=== PATIENT | male | born 1945 | race Caucasian/White ===

== ENCOUNTER 2017-05-29 08:06 | Inpatient (IN) | payer OTHER ==
[~2017-05-29] VITALS: Ht 177.8 cm; Wt 54.2 kg
--- NOTE | ~2017-05-29 | CT23 ---
[facility] A Service of [facility] RADIOLOGY TEXT RESULTS PATIENT: CAR HENDRICKSON LOCATION: [facility] 316-01 : [birth year] UNIT #: [id number] AGE: [address]: Bina Nava MD SEX: M ORDER DR: [id number] [facility] [address] [facility]. [place], [place] [address] [id number] I MR#: [id number] Acc #: [id number] NAME: CAR HENDRICKSON : 1945 SEX: M STUDY DATE/TIME: 05/29/2017 13:30 UNIT: [address] ROOM: [facility] STUDY DESCRIPTION: CT Angio Neck Attending Physician: Bina Nava M.D. Ordering Physician: Tucker Judd M.D. Primary Care Physician: vA Valencia M.D. MEDICAL IMAGING REPORT This report is preliminary unless electronic signature is present EXAM CT angiogram of the neck with contrast dated 05/29/2017 HISTORY Slurred speech, unsteady gait since 05/27/2017. FINDINGS Please see CT angiogram of the head for results. Dictated by... Gilles Piedra M.D. THIS IS AN ELECTRONICALLY VERIFIED REPORT Gilles Piedra M.D. at 05/30/2017 11:42 AM CPR/olive TD: 05/30/2017 08:07 JOB #: [id number] MEDICAL IMAGING REPORT Page 1 of 1 COPY
--- NOTE | ~2017-05-29 | CO ---
Unit #: [id number] #: [id number] Patient: CAR HENDRICKSON [id number] [facility] [address] [facility]. [place], [place] [address] [id number] I MR#: [id number] NAME: CAR HENDRICKSON. ROOM: 316 Age: 72 Sex: M Admission Date: 05/29/2017 : 1945 Attending Physician: Bina Nava M.D. Primary Care Physician: Av Valencia M.D. Consultation Date: 05/29/2017 CONSULTATION REPORT PRIMARY CARE PHYSICIAN Av Valencia M.D. REASON FOR CONSULTATION Balance problem and speech problems since Monday. PATIENT IDENTIFICATION This is a 72-year-old right-handed white male, who is evaluated for room ER T5 at [facility]. SOURCE OF INFORMATION The patient and evaluation and progress. PROBLEM LIST 1. History of COPD. 2. Right hip replacement. 3. Hernia repair. HISTORY OF PRESENT ILLNESS This is a very pleasant 72-year-old gentleman, who actually presented to the emergency room around 0806 hours this morning. He says that sometimes in the afternoon on Monday, he had sudden onset of dizziness and imbalance. He said he was to one side mostly to the right side. He also has noted that his speech was deferred, but somehow he just stayed home and came this morning. He does not take any aspirin. His exam is not very impressive. Head CT showed some atrophy and old right basal ganglia infarct, but nothing acute otherwise. His MRI and further testing is pending. His vital signs were stable. He does have significant hypertension when he came in. He did have correct that, his blood pressure 189/115. This gentleman has been here in the past for asthma and GERD, but nothing major. He also was on B12 pills in the past and is still on Spiriva and ProAir HFA. No headaches. No migraines. No seizure. No tobacco, alcohol, or drug use. No falls or injuries. No insect bite. No recent weight changes. His vital signs have improved, some, but still his systolic blood pressure was as high as . He is afebrile. Unit #: [id number] #: [id number] Patient: CAR HENDRICKSON No change in medication. PAST MEDICAL HISTORY As discussed above. PAST SURGICAL HISTORY As discussed above. ALLERGIES None. HOME MEDICATIONS HFA ProAir, Spiriva. FAMILY HISTORY Lymphoma. SOCIAL HISTORY He lives by himself. There is no tobacco, alcohol, or drug use. He quit smoking about 9 years ago. REVIEW OF SYSTEMS GENERAL: The patient denies any weight issues, fever, chills, rigor, or sweats. HEENT: No headaches. No double vision, earache, runny nose, or sore throat. CARDIOVASCULAR: No chest pain, clubbing, cyanosis, orthopnea, or palpitation. PULMONARY: No shortness of air, cough, or expectoration. GASTROINTESTINAL: No nausea, vomiting, diarrhea, or constipation. GENITOURINARY: No genitourinary symptom. EXTREMITIES: No extremity problem otherwise. BACK: No back problem. PSYCHIATRIC: No psychotic issue. NEUROLOGIC: No neurologic issue. No other hematologic, dermatologic, or endocrine issues known to me. PHYSICAL EXAMINATION VITAL SIGNS: Temperature 98.2, pulse is 92, respirations 17 to 20, blood pressure is 151 to 189 systolic and 91 to 115 diastolic, O2 saturations were 100%, weight is 178 pounds, BMI was 25, though I want them to check it because he does not look that big. NEUROLOGIC: The patient is awake. He is alert. He is fully oriented. He can name and he can follow commands. No right or left confusion. No finger agnosia. Cranial nerve examination demonstrates full antunez of vision to confrontation. Eye movements are conjugate. I did not see any ptosis. I did not see any nystagmus. Extraocular movements are intact. Sensation on the face and scalp are normal. Strength of muscles of facial expression normal. Hearing seemed to be intact bilaterally. Tongue seemed to be deviating little bit towards the right side and uvula may be deviating a little bit towards the left side. Head turning was spontaneous. Motor examination; he has normal bulk, tone. Strength was essentially 5/5. Sensory examination intact for soft touch and pain sensation. No Unit #: [id number] #: [id number] Patient: CAR HENDRICKSON extinction was seen. Romberg was not evaluated. Gait examination was deferred. Coordination was normal for lzhofy-az-thxi-to-finger and dlz-hh-lkrrgm. He could not do kryi-ec-vsdb on the right side. Left side was okay. I could not get any reflexes. Toes are mute. DIAGNOSTIC STUDIES LABORATORY RESULTS: Reviewed personally. IMAGING STUDIES: Reviewed personally. IMPRESSION This is a very interesting 72-year-old gentleman with dizziness and dysarthria and ataxia. I am concerned that he may have a small vessel may be even a mid brain or brainstem type infarct, though I am not seeing any other signs or symptoms. I will check his MRI. I will check his CTA and other labs. We will do stroke workup. He is not acute tPA or intervention candidate. If MRI is okay, he can be worked up as outpatient aspirin, Lipitor, stroke education, I checked his B12 and folate also. Call if any other questions, issues, or concerns. Stroke education was given and I told him he should of come as soon as possible because of the short window where we can help him, he acknowledges. Call if any other issues. Follow up with Neurology as outpatient for regardless of MRI. Dictated by... Naima Silva/wesley TD: 05/29/2017 13:26 JOB #: [id number] CONSULTATION REPORT Page 1 of 1 X Tucker Judd MD X CONSULTATION REPORT
--- NOTE | ~2017-05-29 | CR72 ---
[facility] A Service of [facility] RADIOLOGY TEXT RESULTS PATIENT: CAR HENDRICKSON LOCATION: [facility] 316-01 : 47 UNIT #: [id number] AGE: [address]: Bina Nava MD SEX: M ORDER DR: [id number] [facility] [address]. [place], [place] [address] [id number] I MR#: [id number] Acc #: [id number] NAME: CAR HENDRICKSON : 1945 SEX: M STUDY DATE/TIME: 05/29/2017 8:49 UNIT: CEDOF ROOM: 45763 STUDY DESCRIPTION: CR Chest Single View Portable Attending Physician: Jose A Perez M.D. Ordering Physician: Mayank Shaw M.D. Primary Care Physician: Av Valencia M.D. MEDICAL IMAGING REPORT This report is preliminary unless electronic signature is present EXAM Portable chest x-ray, 05/29/2017. HISTORY Shortness of air. 2 days duration. Off balance. Problems with speech. Emphysema. Former smoker. TECHNIQUE AP radiograph of the chest presented. COMPARISON 10/20/2013 FINDINGS Stable mild thoracic scoliosis. No acute-appearing bony abnormality. Heart and mediastinum are normal in size and contour. The lungs are somewhat hyperinflated. No change and consistent with given diagnosis of underlying emphysema. No indication of acute infectious or inflammatory disease, pleural effusion or pneumothorax. No suspicious nodule. Calcified granuloma right upper lung zone is stable. Dictated by... David Middleton M.D. THIS IS AN ELECTRONICALLY VERIFIED REPORT David Middleton M.D. at 05/31/2017 6:13 PM ALIYA/matheus TD: 05/29/2017 14:27 JOB #: [id number] [facility] A Service of [facility] & [facility] RADIOLOGY TEXT RESULTS PATIENT: CAR HENDRICKSON LOCATION: [facility] 316-01 : 47 UNIT #: [id number] AGE: [address]: Bina Nava MD SEX: M ORDER DR: MEDICAL IMAGING REPORT Page 1 of 1 COPY
--- NOTE | ~2017-05-29 | HP ---
Unit #: [id number] #: [id number] Patient: CAR HENDRICKSON [id number] [address] [address] [id number] I MR#: [id number] NAME: CAR HENDRICKSON ROOM: 22044 Age: 72 Sex: M Admission Date: 05/29/2017 : 1945 Attending Physician: Giovanny Perez M.D. Primary Care Physician: Av Valencia M.D. HISTORY AND PHYSICAL CHIEF COMPLAINT Balance/speech problems. HISTORY OF PRESENT ILLNESS The patient is a 72-year-old male with a history of COPD/emphysema, brought to the emergency room complaining of balance/speech problems since Monday. The patient stated that patient has been gradually having problems with walking and with falls. The patient also complains of trouble climbing stairs and lots of saliva causing trouble with speech. The patient stopped smoking many years ago and had smoked for a while. The patient continues to drink three beers every night, and the last beer was last night. The patient denies any headache and denies any chest pain, nausea, or vomiting. The patient is being admitted for the above reasons. PAST MEDICAL HISTORY History of COPD/emphysema. PAST SURGICAL HISTORY 1. Right hip replacement. 2. Hernia repair. HOME MEDICATIONS 1. Symbicort. 2. Albuterol. ALLERGIES No known drug allergies. FAMILY HISTORY Reviewed and none. SOCIAL HISTORY Quit smoking many years ago and smoked one pack per week. Continues to drink alcohol, three beers every night. No illicit drug abuse. REVIEW OF SYSTEMS Positive for speech problems and ataxia. Denies any headache, denies any nausea or vomiting, denies any chest pain, and denies any shortness of breath. All other systems have been reviewed and none. PHYSICAL EXAMINATION GENERAL: Patient is lying in bed not in acute distress, seen in the CT scan department. Patient has had an MRI and CTA of the brain. Unit #: [id number] #: [id number] Patient: CAR HENDRICKSON VITAL SIGNS: Temperature 98.2, pulse 106, respiratory rate 20, blood pressure 199/115, and saturating 100% on room air. HEENT: Head atraumatic, normocephalic. Pupils equal, round, and reactive to light and accommodation. NECK: Supple. LUNGS: Decreased air entry at the bases. HEART: Regular rate and rhythm. ABDOMEN: Soft. Positive bowel sounds. EXTREMITIES: No cyanosis, no clubbing. NEUROLOGIC: Alert, awake, and oriented. Positive for dysarthria and positive for decreased motor strength in the right upper and lower extremities. No sensory neurologic findings. PSYCHIATRIC: Mood and affect are appropriate. DIAGNOSTIC STUDIES LABORATORY: WBC 7.7, hemoglobin 16.8, hematocrit 48.2, and platelets 235,000. Troponin less than 0.05. INR is 1. Sodium 134, potassium 3.9, chloride 100, bicarb 26, glucose 94, BUN 10, creatinine 0.6, AST 17, ALT 13, and alkaline phosphatase 52. Cholesterol is 207, triglycerides 162, LDL 108, and HDL 67. C-reactive protein is less than 0.05. Vitamin B12 is 152 and folate is 15.9. IMAGING: CT of the head shows no acute intracranial findings, chronic lacunar infarcts, and microvascular disease. CARDIOLOGY: EKG shows normal sinus rhythm, (1) voltage criteria for LVH, and nonspecific ST-T abnormalities. ASSESSMENT 1. Transient ischemic attack with ataxia versus slurred speech. 2. Chronic obstructive pulmonary disease. 3. Alcohol abuse. PLAN Admit the patient to observation with telemetry. Patient has been seen by Neurology who recommended an MRI of the brain. Continue (2) for the withdrawal symptoms, continue with OT/PT, continue with Ativan 1 mg IV for MRI, replace the vitamin B12, and continue the aspirin and statins. Further recommendations will follow as more lab results are available. Dictated by Naima Barry TD: 05/29/2017 14:16 JOB #: [id number] HISTORY AND PHYSICAL Page 1 of 1 X GIOVANNY PEREZ MD X HISTORY AND PHYSICAL
--- NOTE | ~2017-05-29 | OR ---
Unit #: [id number] #: [id number] Patient: CAR HENDRICKSON [id number] [address] [place], [place] [address] [id number] Faiza MR#: [id number] NAME: CAR HENDRICKSON. ROOM: [facility] Date of Procedure: 05/31/2017 Admission Date: 05/29/2017 Surgeon: Heron Palomares M.D. : 1945 Attending Physician: Bina Nava M.D. Primary Care Physician: Av Valencia M.D. OPERATIVE REPORT PROCEDURE PERFORMED Esophagogastroduodenoscopy with PEG tube placement. INDICATIONS FOR PROCEDURE A 72-year-old gentleman, presented with acute stroke, now with severe oropharyngeal dysphagia. Speech evaluation was recommended. No oral intake and a PEG tube placement. MEDICATIONS Monitored anesthesia. POSTOPERATIVE FINDINGS 1. Esophageal ring, acquired, nonobstructing. 2. Small hiatal hernia. 3. Normal stomach. 4. Normal duodenum and distal duodenum. 5. Successful placement of G-tube and gastric body by a push method. PLAN See inpatient orders for details. DESCRIPTION OF PROCEDURE The patient was explained of the procedure, risks, and benefits along with risks and benefits of anesthesia. He was brought to the endoscopy room. Propofol anesthesia was given. Bite block was placed. The scope was passed down the mouth into the esophagus, stomach, duodenum, and distal duodenum. Findings as described. Identified a spot for G-tube placement by indentation and transillumination. I then confirmed with of the skin was draped and local anesthetic was given. A small incision was made. Trocar and cannula were then passed through this into the stomach. A guidewire was then passed through this trocar and pulled out of patient's mouth using the scope and the snare from inside. A push method tube was then placed over the wire and pulled out of anterior abdominal wall where it was secured with an external bumper. The scope was reintroduced in the stomach. Inner bumper was nicely in place. Gently, I pulled the scope out. He tolerated it well. No immediate complications seen. Dictated by... Heron Palomares M.D. Unit #: [id number] #: [id number] Patient: CAR HENDRICKSON BUTCH/wesley TD: 06/01/2017 01:29 JOB #: [id number] OPERATIVE REPORT Page 1 of 1 X Heron Palomares MD PROCEDURE OPERATIVE NOTE
--- NOTE | ~2017-05-29 | CT57 ---
[facility] A Service of [facility] RADIOLOGY TEXT RESULTS PATIENT: CAR HENDRICKSON LOCATION: [facility] 316-01 : [birth year] UNIT #: [id number] AGE: [address]: Bina Nava MD SEX: M ORDER DR: [id number] [facility] [address] [facility]. [place], [place] [address] [id number] I MR#: [id number] Acc #: [id number] NAME: CAR HENDRICKSON : 1945 SEX: M STUDY DATE/TIME: 05/30/2017 18:43 UNIT: [address] ROOM: [facility] STUDY DESCRIPTION: CT Chest Wo Cont Attending Physician: Bina Nava M.D. Ordering Physician: Bina Nava M.D. Primary Care Physician: Av Valencia M.D. MEDICAL IMAGING REPORT This report is preliminary unless electronic signature is present EXAM Chest CT without contrast. HISTORY Chest discomfort, onset today with chronic weight loss. TECHNIQUE Axial images were obtained without contrast and evaluated at lung and mediastinal windows. This CT exam was performed with one or more of the following radiation dose reduction techniques: automatic exposure control, adjustment of mA and/or kV according to patient size, and iterative reconstruction. FINDINGS Chest images at mediastinal window show no enlarged mediastinal or hilar lymph nodes. Atherosclerotic changes are seen in the aorta. Upper abdominal structures are remarkable for bilateral renal cysts. There is no evidence of pleural or pericardial fluid. Lung window imaging shows both lungs to be clear with no suspicious masses or infiltrates. IMPRESSION Negative chest CT. No suspicious masses are seen. Dictated by... Mayank Hand M.D. THIS IS AN ELECTRONICALLY VERIFIED REPORT Mayank Hand M.D. at 06/01/2017 7:08 AM NY/sadie TD: 05/31/2017 09:14 [facility] A Service of [facility] RADIOLOGY TEXT RESULTS PATIENT: CAR HENDRICKSON LOCATION: [facility] 316-01 : [birth year] UNIT #: [id number] AGE: [address]: Bina Nava MD SEX: M ORDER DR: JOB #: [id number] MEDICAL IMAGING REPORT Page 1 of 1 COPY
--- NOTE | ~2017-05-29 | OR ---
Unit #: [id number] #: [id number] Patient: CAR HENDRICKSON [id number] [address] [place], [place] [address] [id number] Faiza MR#: [id number] NAME: CAR HENDRICKSON. ROOM: [facility] Date of Procedure: 05/31/2017 Admission Date: 05/29/2017 Surgeon: Heron Palomares M.D. : 1945 Attending Physician: Bina Nava M.D. Primary Care Physician: Av Valencia M.D. PROCEDURE OPERATIVE NOTE PROCEDURE EGD with PEG tube placement. INDICATION 72-year-old gentleman with acute stroke, now with severe oropharyngeal dysphagia. Speech evaluation recommended. No oral intake and a PEG tube placement. MEDICATION Monitored anesthesia. POSTOP FINDINGS 1. Esophageal ring acquired, nonobstructing. 2. Small hiatal hernia. 3. Normal stomach. 4. Normal duodenum. 5. Status post placement of G-tube in gastric body by push method. PLAN See inpatient orders for details. DESCRIPTION OF PROCEDURE The patient was explained the procedure, risks, and benefits along with risks and benefits of anesthesia. He was brought to the endoscopy room. Propofol anesthesia was given. Bite block was placed. The scope was passed down the mouth into the esophagus, stomach, duodenum, and distal duodenum. Findings as described. Identified a spot for G-tube placement by indentation and transillumination. I then confirmed with safe track method. Part of the skin was draped. Local anesthetic was given. Small incision was made. Trocar and cannula was then passed through this into the stomach. A guidewire was then passed through this trocar and pulled out of patient's mouth using a scope and a snare from inside. A push method tube was then placed over the wire and pulled out of anterior abdominal wall where it was secured with an external bumper. Scope was reintroduced in the stomach and the bumper was nicely in place. Gently, I pulled the scope out. He tolerated it well. No immediate complications seen. Dictated by... Unit #: [id number] #: [id number] Patient: CAR HENDRICKSON Naima Lopez/silvia TD: 06/01/2017 10:08 JOB #: [id number] PROCEDURE OPERATIVE NOTE Page 1 of 1 X Heron Palomares MD PROCEDURE OPERATIVE NOTE
--- NOTE | ~2017-05-29 | CR4 ---
[facility] A Service of [facility] RADIOLOGY TEXT RESULTS PATIENT: CAR HENDRICKSON LOCATION: [facility] 316 : 47 UNIT #: [id number] AGE: [address]: Bina Nava MD SEX: M ORDER DR: [id number] [place] [id number] [facility]. [place], [place] [address] [id number] I MR#: [id number] Acc #: [id number] NAME: CAR HENDRICKSON. : 1945 SEX: M STUDY DATE/TIME: 05/31/2017 15:21 UNIT: [address] ROOM: [address] [place] [address] DESCRIPTION: CR Abdomen Flat Upright or Dec Attending Physician: Bina Nava M.D. Ordering Physician: Heron Palomares M.D. Primary Care Physician: Av Valencia M.D. MEDICAL IMAGING REPORT This report is preliminary unless electronic signature is present EXAM Flat and upright abdomen. INDICATIONS Abdominal pain for 2 hours today; recent PEG placement. COMPARISON No comparisons. TECHNIQUE 20 mL of gastrograph was injected into the PEG tube. FINDINGS This shows contrast within the stomach. There is also residual contrast in the colon, presumably from a different study. No free air. No evidence for bowel obstruction. IMPRESSION Contrast injected into the PEG tube shows that there is contrast within the stomach. There is no free air. There is some contrast within the colon, presumably from previous contrast study. Dictated by... Maurizio Sharpe M.D. THIS IS AN ELECTRONICALLY VERIFIED REPORT Maurizio Sharpe M.D. at 06/02/2017 7:56 AM SHILA/matheus TD: 05/31/2017 18:52 JOB #: [id number] [facility] A Service [facility] RADIOLOGY TEXT RESULTS PATIENT: CAR HENDRICKSON LOCATION: [facility] 316- : 47 UNIT #: [id number] AGE: [address]: Bina Nava MD SEX: M ORDER DR: MEDICAL IMAGING REPORT Page 1 of 1 COPY
--- NOTE | ~2017-05-29 | MR18 ---
[facility] A Service of [facility] & [facility] RADIOLOGY TEXT RESULTS PATIENT: CAR HENDRICKSON LOCATION: [facility] 316-01 : [birth year] UNIT #: [id number] AGE: [address]: Bina Nava MD SEX: M ORDER DR: [id number] [facility] [address] [facility]. [place], [place] [address] [id number] I MR#: [id number] Acc #: [id number] NAME: CAR HENDRICKSON : 1945 SEX: M STUDY DATE/TIME: 05/29/2017 12:35 UNIT: [address] ROOM: [facility] STUDY DESCRIPTION: MR Brain Wo Contrast Attending Physician: Jose A Perez M.D. Ordering Physician: Tucker Judd M.D. Primary Care Physician: Av Valencia M.D. MRI CENTER REPORT This report is preliminary unless electronic signature is present. EXAM MRI of the brain without contrast dated 05/29/2017. COMPARISON CT head without contrast dated 05/29/2017. HISTORY Imbalance, speech difficulty since 05/27/2017. TECHNIQUE Multisequence multiplanar imaging of the brain was obtained without contrast. FINDINGS There is restricted diffusion over lesion measuring 9 mm in the left frontal weaver radiata extending into the adjacent left posterior limb of the internal capsule and basal ganglia. No associated hemorrhage. There are a few other hyperintense T2 lesions scattered in the brain involving the periventricular white matter, few in the subcortical white matter, and the right frontal weaver radiata extending to the right basal ganglia, left thalamus and aubrey. They are chronic-appearing. No complete occlusion of the vessels of the [place] is seen in these thicker slices. The right vertebral artery is of very small caliber. Thick slices through the sella with the pituitary gland, pineal region and upper cervical spine are unremarkable. IMPRESSION 1. 9 mm acute non-hemorrhagic lacunar infarct in the left frontal weaver radiata extending into the left basal ganglia. 2. Scattered hyperintense T2-signal lesions are noted in the brain involving the white matter, left thalamus, right basal ganglia and STS. [facility] A Service of [facility] & [facility] RADIOLOGY TEXT RESULTS PATIENT: CAR HENDRICKSON LOCATION: [facility] 316-01 : [birth year] UNIT #: [id number] AGE: [address]: Bina Nava MD SEX: M ORDER DR: aubrey. They are likely related to chronic microvascular ischemic change and old lacunar infarcts based on age and statistics. Nonspecific. Attempts are made to contact Dr. Judd at 01:40 p.m. on 05/29/2017. Findings were discussed with him within the next 10 minutes. Dictated by... Gilles Piedra M.D. THIS IS AN ELECTRONICALLY VERIFIED REPORT Gilles Piedra M.D. at 05/30/2017 11:41 AM CPR/pcl TD: 05/29/2017 23:12 JOB #: [id number] MRI CENTER REPORT Page 1 of 1 COPY
--- NOTE | ~2017-05-29 | A ---
[facility] Nutrition Therapy DATE: 05/30/17 Patient: CAR HENDRICKSON Physician: SHRADDHA Address: [address] [place] [address] Room/Bed: [address] [place] [address], Zip: [place] [address] Admit Date: 05/29/17 Date of : [birth year] Height: 5 10 Weight: 115 52.6 NUTRITIONAL ASSESSMENT: REASON: Low BMI, stroke protocol and consult for tube feeding recommendations 72 yo male admitted for TIA vs CVA PMH: COPD, right hip replacement, hernia repair, GERD Anthropometrics: Ht: 5'10" Adm wt: BMI: IBW: 75.4 kg Labs: Na+ 134 Cl- 96 Chol 207 Trig 162 Meds: D5% + NaCl, folvite, thiamine, MgS04, MVI, lipitor I/O & Bowel function: 120/400, No documented BM Skin Integrity: none noted Edema: none noted Estimated Nutrition Needs: 4606-6319 kcals (30-35 kcals/kg) 53-68 grams protein (1.0-1.3 grams/kg) Diet: NPO Assessment: Chart reviewed, events noted. 72 yo male admitted for stroke with balance and speech issues per MD note. SALES LEADER recommends that the pt remains NPO and to consider feeding tube at this time d/t dysphagia. Dysarthria also noted. Pt needing PEG per MD note. RD consulted to provide enteral nutrition recommendations. Of note, the pt is underweight with a BMI of 16.6. RD spoke with the pt at bedside. 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 explained to the pt that he currently weighs 116 lbs, which would indicated that he has lost ~4-[address] also explained the importance of adequate nutritional intake, and how enteral nutrition works via PEG. Pt voiced understanding, stating he is very hungry. Please note, this pt may be at risk for refeeding syndrome d/t low body weight and daily alcohol intake, likely malnutrition. RD will provide enteral nutrition recommendations below. Dx: 1) Inadequate oral intake RT dysphagia, stroke AEB SALES LEADER evaluation, NPO status, need for PEG and enteral nutrition. [facility] Therapy DATE: 05/30/17 Patient: CAR Amanda HENDRICKSON Physician: [email or web address] Address: [address] [place] [address] Room/Bed: [address] [place] [address], Zip: [place] [address] Admit Date: 05/29/17 Date of : [birth year] Height: 5 10 Weight: 115 52.6 2) Underweight RT lifestyle, PMH AEB BMI 16.6, 70% IBW, 4-9 lbs weight loss likely. Intervention: 1. SALES LEADER 2. PEG 3. Enteral nutrition Monitoring, Evaluation and Goals: 1. Enteral nutrition; initiate, provide >80% goal volume x 24 hrs once started 2. Improve labs; Na+, Chol, trig 3. GI; promote regular bowel function Recommendations: 1. Once PEG is placed and enteral nutrition ordered by MD, start Jevity 1.5 @ 20 mL/hr (if continuous EN desired). Increase by 10 mL q 8 hrs as tolerated to goal of 50 mL/hr to provide: 1800 kcals/ 77 grams protein/ 912 mL free H20 Start at low rate and increase gradually per RD recommendations, as this pt is at risk for refeeding syndrome as previously stated 2. Consider bolus enteral nutrition to provide a less expensive option for the pt. This will also allow the pt to ambulate more easily. If bolus enteral nutrition preferred, recommend to: - Bolus five cans (237 mL per can) Jevity 1.5 per day to provide: 1775 kcals/ 76 grams protein/ 900 mL free H20 3. Add 200 mL free H20 flushes fives times daily or per MD orders. 4. Continue SALES LEADER after discharge as appropriate to determine least restrictive diet tolerated by the pt. Pt is at moderate nutritional risk. RD will follow hospital course per protocol. Respectfully, NOE XIE RD, LD Food and Nutritional Services [facility] Nutrition Therapy DATE: 05/30/17 Patient: CAR Amanda HENDRICKSON Physician: [email or web address] Address: [address] [place] [address] Room/Bed: [address] [place] [address], Zip: [place] [address] Admit Date: 05/29/17 Date of : [birth year] Height: 5 10 Weight: 115 52.6 cc: client file
--- NOTE | ~2017-05-29 | EKG ---
PATIENT: CAR HENDRICKSON UNIT #: [id number] Ventricular Rate: 96 BPM Atrial Rate: 96 BPM P-R Interval: 128 ms QRS Duration: 92 ms Q-T Interval: 336 ms QTC Calculation(Bezet): 424 ms P [place]: 78 degrees Calculated R [place]: 49 degrees Calculated T [place]: 55 degrees Diagnosis Line: Normal sinus rhythm Diagnosis Line: Minimal voltage criteria for LVH, may be normal Diagnosis Line: variant Diagnosis Line: Normal ECG Diagnosis Line: When compared with ECG of 20-OCT-2013 18:28, Diagnosis Line: No significant change was found Diagnosis Line: Confirmed by MARCUS SMYTH MD ([id number]) on 05/29/2017 Diagnosis Line: 10:11:51 PM INTERPRETING MD: LIBRA HOWE
--- NOTE | ~2017-05-29 | DS ---
Unit #: [id number] #: [id number] Patient: CAR HENDRICKSON [id number] [address] [place], [place] [address] [id number] I MR#: [id number] NAME: CAR HENDRICKSON ROOM: [facility] Age: 72 Sex: M Admission Date: 05/29/2017 : 1945 Discharge Date: 06/02/2017 Attending Physician: Bina Nava M.D. Primary Care Physician: Av Valencia M.D. DISCHARGE SUMMARY REASON FOR ADMISSION Balance/speech problems. HISTORY OF PRESENT ILLNESS Patient is a very pleasant 72-year-old male, underlying history of COPD, ongoing tobacco abuse, who presented secondary to difficulty with ambulation, frequent falls. He also complained of increased saliva, difficulty with speech and/or swallowing. He stated that he continued to drink and consume alcohol on a fairly daily basis. He was seen initially and evaluated in the ER. Concern for underlying CVA was made. He was placed on stroke protocol and appropriate consultation was placed to Dr. Judd. Patient ultimately underwent an MRI brain without contrast which did reveal a 9 mm acute nonhemorrhagic lacunar infarct in the left frontal weaver radiata and in the left basal ganglia. There were also other scattered hyperintense lesions which were noted, likely secondary to chronic microvascular change and likely nonspecific. After evaluation from Dr. Judd, patient was placed on appropriate medical management including statin therapy as well as aspirin. Secondary to increased dyspnea, respiratory condition as well as the patient's complaints of weight loss, he ultimately underwent a CT chest noncontrast which did not show any acute process or any suspicious masses. This was conducted on 05/30/2017. As per routine stroke protocol, patient also underwent speech therapy consultation and after evaluation including video function swallow study, patient was deemed to be inappropriate to swallow and absolute dysphagia and/or n.p.o. status was recommended therefore this prompted consultation to Dr. Palomares of gastroenterology services. PEG tube placement was recommended. Vivienne underwent upper GI endoscopy as well as PEG tube placement on May 31, 2017. Afterwards his tube feeding was initiated to which he has tolerated well over the past 24 hours and at this point in time patient is clinically stable for discharge home. In approximately four weeks the patient was instructed to follow up with neurology services, Dr. Martin, as an outpatient. He was also instructed to follow up with speech therapy services as an outpatient as well. Reevaluation of speech and/or swallowing mechanism may be conducted at that point in time. If it is deemed appropriate he may begin taking p.o. and/or consideration may be given to discontinuing his PEG tube placement. All plans have been reviewed and discussed with patient in detail. Unit #: [id number] #: [id number] Patient: CAR HENDRICKSON It was strongly recommended to him that he quit drinking alcohol altogether as his chronic alcoholism may be overall detrimental to his health and he expressed understanding. FINAL DISCHARGE DIAGNOSES 1. Acute cerebrovascular accident. 2. Frequent falls. 3. Absolute dysphagia. 4. Moderate to severe protein/caloric malnutrition, likely secondary to underlying alcohol abuse. 5. Alcohol abuse/dependence. 6. Tobacco abuse. 7. Underlying chronic obstructive pulmonary disease. FINAL DISCHARGE MEDICATIONS 1. Proventil HFA two puffs q.4-6 h. p.r.n. 2. Spiriva one inhalation daily. 3. Lipitor 40 mg p.o. q.h.s. 4. Aspirin 81 mg p.o. daily. 5. Multivitamin daily. DISCHARGE CONDITION Stable. DISCHARGE DISPOSITION Home. DISCHARGE INSTRUCTIONS Home health to follow at time of discharge once tube feeding and/or nutrition and appropriate DME are set up. Dictated by... Bina Nava M.D. FAUSTINO/cathleen TD: 06/04/2017 16:22 JOB #: [id number] DISCHARGE SUMMARY Page 1 of 1 X Bina Nava MD X DISCHARGE SUMMARY
--- NOTE | ~2017-05-29 | CT71 ---
[facility] A Service of [facility] & [facility] RADIOLOGY TEXT RESULTS PATIENT: CAR HENDRICKSON LOCATION: A 316-01 : [birth year] UNIT #: [id number] AGE: [address]: Bina Nava MD SEX: M ORDER DR: [id number] [facility] [address] [place], [place] [address] [id number] I MR#: [id number] Acc #: [id number] NAME: CAR HENDRICKSON : 1945 SEX: M STUDY DATE/TIME: 05/29/2017 9:09 UNIT: CEDOF ROOM: [id number] STUDY DESCRIPTION: CT Head Wo Contrast Attending Physician: Jose A Perez M.D. Ordering Physician: Mayank Shaw M.D. Primary Care Physician: Av Valencia M.D. MEDICAL IMAGING REPORT This report is preliminary unless electronic signature is present EXAM CT head, 05/29/2017. HISTORY Off balance and speech difficulty since 05/27/2017. TECHNIQUE CT head performed skull base through vertex without intravenous contrast. This CT exam was performed with one or more of the following radiation dose reduction techniques: automatic exposure control, adjustment of mA and/or kV according to patient size, and iterative reconstruction. COMPARISON STUDIES No prior CTs of head for comparison. FINDINGS The brainstem is unremarkable. The cerebellum and cerebral hemispheres show overall preservation of [place] matter-white matter differentiation. There is no evidence of hemorrhage or acute cortical ischemia. There are periventricular and deep white matter tract probable sequelae of chronic microvascular ischemia. There is a chronic lacunar infarct in the right caudate nucleus body measuring approximately 6-7 mm in diameter. It does extend into the internal capsule. There are bilateral basal ganglia calcifications. There is no evidence of acute basal ganglia abnormality. The ventricles, cisterns, and sulci within normal limits of size and contour for a patient of this age. Extensive cavernous carotid and distal vertebral arterial calcification. No intra or extraaxial mass effect or abnormal intracranial fluid collection. The intraorbital soft tissues are unremarkable in visualized extent. The visualized paranasal sinuses and mastoid air cells are clear. STS. [facility] A Service of [facility] & [facility] RADIOLOGY TEXT RESULTS PATIENT: CAR HENDRICKSON LOCATION: [facility] 316- : [birth year] UNIT #: [id number] AGE: [address]: Bina Nava MD SEX: M ORDER DR: IMPRESSION 1. No acute abnormality seen in brain. If patient has ongoing neurologic symptoms, consider followup imaging. 2. Periventricular and deep white matter tract probable sequelae of chronic microvascular ischemic. 3. 6-7 mm chronic lacunar infarct right caudate nucleus body and internal capsule. 4. Extensive vascular calcification. Dictated by... David Middleton M.D. THIS IS AN ELECTRONICALLY VERIFIED REPORT David Middleton M.D. at 05/31/2017 6:14 PM [place] TD: 05/29/2017 15:01 JOB #: [id number] MEDICAL IMAGING REPORT Page 1 of 1 COPY
--- NOTE | ~2017-05-29 | CT17 ---
[facility] A Service of [facility] & [facility] RADIOLOGY TEXT RESULTS PATIENT: CAR HENDRICKSON LOCATION: [facility] 316-01 : [birth year] UNIT #: [id number] AGE: [address]: Bina Nava MD SEX: M ORDER DR: [id number] [facility] [address] [place], [place] [address] [id number] I MR#: [id number] Acc #: [id number] NAME: CAR HENDRICKSON : 1945 SEX: M STUDY DATE/TIME: 05/29/2017 13:30 UNIT: [address] ROOM: [facility] STUDY DESCRIPTION: CT Angio Head Attending Physician: Bina Nava M.D. Ordering Physician: Tucker Judd M.D. Primary Care Physician: Av Valencia M.D. MEDICAL IMAGING REPORT This report is preliminary unless electronic signature is present EXAM CT angiogram of the head and neck with contrast dated 05/29/2017 COMPARISON MRI brain without contrast dated 05/29/2017. HISTORY Slurred speech, unsteady gait since 05/27/2017. FINDINGS CT angiogram of the head and neck was obtained with IV contrast in the axial plane followed by reformats. Curved reformats of the major neck arteries were performed. Reformats of the [place] in three planes, 3-D tumbling MIP images of the [place] and surface rendered images of the [place] with bilateral MCA snapshots were obtained. This CT examination was performed with one or more of the following radiation dose reduction techniques: automatic exposure control, adjustment of mA and/or kV according to patient size, and iterative reconstruction. FINDINGS NECK: Three-vessel aortic arch is seen. Atherosclerotic plaques are noted in the aortic arch extending into the left subclavian artery. Bilateral common carotid arteries demonstrate atherosclerotic plaques in bilateral common carotid artery bifurcation extending into bilateral ECA and ICA. No hemodynamically significant stenosis is seen in bilateral ICA bulbs per NASCET criteria. Left vertebral artery is dominant. Right vertebral artery is of very small caliber and is seen throughout its cervical course. HEAD: Bilateral intracranial internal carotid arteries demonstrate mild atherosclerotic plaques in bilateral cavernous and supraclinoid ICA. Bilateral anterior and middle cerebral arteries are within normal limits. [facility] A Service of [facility] RADIOLOGY TEXT RESULTS PATIENT: CAR HENDRICKSON LOCATION: [facility] 316-01 : [birth year] UNIT #: [id number] AGE: [address]: Bina Nava MD SEX: M ORDER DR: Bilateral posterior communicating arteries are seen which cross fill bilateral P2 and distal portions of bilateral ELECTRONIC WARFARE SPECIALIST with very hypoplastic bilateral P1 segments. Basilar artery demonstrates decrease in caliber in the distal half after the takeoff of bilateral AICA. Bilateral P1 segments are hypoplastic. Tiny bilateral superior cerebellar arteries are seen. Left vertebral artery is dominant and predominantly feeds the basilar artery. The right vertebral artery is hypoplastic. Right PICA is within normal limits. Dural venous sinuses are patent without filling defects to suggest thrombosis. EXTRAVASCULAR SOFT TISSUES: Degenerative changes are noted in the cervical spine with varying degrees of canal stenosis and neural foraminal narrowing. No enhancing intracranial mass is seen. Patient has a known acute lacunar infarct in the left frontal weaver radiata, best seen in the MRI brain from the same day. IMPRESSION 1. No hemodynamically flow limiting significant stenosis in bilateral internal carotid artery bulbs per NASCET criteria. 2. The left middle cerebral artery does not demonstrate any significant abnormality. It is symmetrical when compared to the right. 3. The distal half of the basilar artery demonstrates decreased caliber when compared to the proximal half. The difference is seen after the takeoff of bilateral AICA from the basilar artery. It is probably a congenital appearance. No obvious vascular irregularity is noted to suggest atherosclerotic disease. 4. Persistent appearance of bilateral ELECTRONIC WARFARE SPECIALIST are incidentally noted. 5. Very hypoplastic cervical right vertebral artery which extends intracranially. 6. No aneurysm or AVM. Dictated by... Gilles Piedra M.D. THIS IS AN ELECTRONICALLY VERIFIED REPORT Gilles Piedra M.D. at 05/30/2017 11:42 AM CPR/olive TD: 05/30/2017 08:09 JOB #: [id number] MEDICAL IMAGING REPORT Page 1 of 1 COPY
[~2017-05-29 08:06] MED LIST: ALBUTEROL17 GM INH; LORTAB 7.5-5001 TAB PO; OMEPRAZOLE DR PO; PREDNISONE10 MG PO; PROAIR HFA8.5 GM IH; QVAR7.3 GM INH; SPIRIVA18 MCG INH; SYMBICORT INH; VITAMIN B12-FO1 EACH PO
[2017-05-29 08:43] LABS: BASOPHIL% 0.5 % (0-2.5); EOSINOPHIL% 0.1 % (0.0-7.0); HEMATOCRIT 48.2 % (38.0-50.0); HEMOGLOBIN 16.8 gm/dL (13.0-16.0); LYMPHOCYTE# 1.1 X10e3 (1.0-3.5); LYMPHOCYTE% 13.9 % (17.0-45.0); MEAN CELL VOLUME 94.4 FL (83-96); MEAN CORPUSCULAR HEMOGLOBIN 32.8 PG (28-34); MEAN CORPUSCULAR HGB CONC 34.8 g/dL (30-36); MEAN PLATELET VOLUME 6.8 FL (6.5-11.5); MONOCYTE# 0.5 X10e3 (0-1.0); MONOCYTE% 7.1 % (3.0-12.0); NEUTROPHIL# 6.1 X10e3 (1.5-7.1); NEUTROPHIL% 78.4 % (40-75); PLATELET COUNT 235 X10e3 (140-420); RED BLOOD COUNT 5.11 X10e (3.90-5.60); RED CELL DISTRIBUTION WIDTH 13.7 % (11.0-15.5); WHITE BLOOD COUNT 7.7 X10e3 (4.0-10.5)
[2017-05-29 08:46] LABS: DIFF IND NO
[2017-05-29 08:54] LABS: POC - CKMB 1.2 ng/mL (0.0-7.9); POC - TROPONIN <0.05 ng/mL (<=0.05)
[2017-05-29 08:56] LABS: PARTIAL THROMBOPLASTIN TIME 25.9 SECONDS (23.5-31.3); PROTHROMBIN TIME (PATIENT) 10.7 SECONDS (10.0-11.7)
[2017-05-29 09:09] LABS: ALBUMIN SERUM 4.4 g/dL (3.5-5.0); BILIRUBIN, DIRECT 0.1 mg/dL (0.0-0.2); BILIRUBIN,INDIRECT 0.9 mg/dL (0.0-0.9); BUN/CREATININE RATIO 16.66; CALCIUM SERUM 9.2 mg/dL (8.4-10.2); CREATININE SERUM 0.6 mg/dL (0.6-1.4); GLOM FILT RATE Estimated 101.9 mL/min (>60); POTASSIUM 3.9 mmol/L (3.5-5.1); PROTEIN TOTAL SERUM 7.5 g/dL (6.0-8.3)
[2017-05-29 12:42] LABS: BUN/CREATININE RATIO 16.66; CREATININE SERUM 0.6 mg/dL (0.6-1.4); GLOM FILT RATE Estimated 101.9 mL/min (>60); POTASSIUM 3.9 mmol/L (3.5-5.1)
[2017-05-29 12:43] LABS: ALBUMIN SERUM 4.4 g/dL (3.5-5.0); CALCIUM SERUM 9.2 mg/dL (8.4-10.2); PROTEIN TOTAL SERUM 7.5 g/dL (6.0-8.3)
[2017-05-29 13:02] LABS: FOLATE (FOLIC ACID) 15.9 ng/mL (>5.8)
[2017-05-29] MEDS ORDERED: ALBUTEROL17 GM INH (15:50)
[2017-05-29] MEDS ORDERED: LIPITOR40 MG PO (15:51)
[2017-05-29] MEDS ORDERED: SPIRIVA18 MCG INH (15:51)
[2017-05-30 04:55] LABS: HEMATOCRIT 45.1 % (38.0-50.0); HEMOGLOBIN 15.7 gm/dL (13.0-16.0); MEAN CELL VOLUME 95.1 FL (83-96); MEAN CORPUSCULAR HEMOGLOBIN 33.1 PG (28-34); MEAN CORPUSCULAR HGB CONC 34.8 g/dL (30-36); MEAN PLATELET VOLUME 6.8 FL (6.5-11.5); RED BLOOD COUNT 4.75 X10e (3.90-5.60); RED CELL DISTRIBUTION WIDTH 13.2 % (11.0-15.5); WHITE BLOOD COUNT 6.9 X10e3 (4.0-10.5)
[2017-05-30 06:47] LABS: BUN/CREATININE RATIO 16.66; CREATININE SERUM 0.6 mg/dL (0.6-1.4); GLOM FILT RATE Estimated 101.9 mL/min (>60); POTASSIUM 4.1 mmol/L (3.5-5.1)
[2017-05-31 06:03] LABS: HEMATOCRIT 43.4 % (38.0-50.0); HEMOGLOBIN 14.9 gm/dL (13.0-16.0); MEAN CELL VOLUME 95.1 FL (83-96); MEAN CORPUSCULAR HEMOGLOBIN 32.6 PG (28-34); MEAN CORPUSCULAR HGB CONC 34.3 g/dL (30-36); RED BLOOD COUNT 4.56 X10e (3.90-5.60); RED CELL DISTRIBUTION WIDTH 13.3 % (11.0-15.5); WHITE BLOOD COUNT 6.5 X10e3 (4.0-10.5)
[2017-05-31 06:57] LABS: ALBUMIN SERUM 3.5 g/dL (3.5-5.0); BILIRUBIN,TOTAL 0.9 mg/dL (0.2-2.0); CALCIUM SERUM 8.5 mg/dL (8.4-10.2); CREATININE SERUM 0.6 mg/dL (0.6-1.4); GLOM FILT RATE Estimated 101.9 mL/min (>60); MAGNESIUM 2.2 mg/dL (1.6-3.0); POTASSIUM 4.2 mmol/L (3.5-5.1); PROTEIN TOTAL SERUM 5.7 g/dL (6.0-8.3)
[2017-06-01 05:15] LABS: HEMATOCRIT 39.1 % (38.0-50.0); HEMOGLOBIN 13.8 gm/dL (13.0-16.0); MEAN CELL VOLUME 94.1 FL (83-96); MEAN CORPUSCULAR HEMOGLOBIN 33.1 PG (28-34); MEAN CORPUSCULAR HGB CONC 35.2 g/dL (30-36); MEAN PLATELET VOLUME 6.9 FL (6.5-11.5); RED BLOOD COUNT 4.16 X10e (3.90-5.60); RED CELL DISTRIBUTION WIDTH 13.3 % (11.0-15.5)
[2017-06-01 05:23] LABS: WHITE BLOOD COUNT 10.8 X10e3 (4.0-10.5)
[2017-06-01 07:15] LABS: ALBUMIN SERUM 3.3 g/dL (3.5-5.0); BILIRUBIN,TOTAL 1.5 mg/dL (0.2-2.0); BUN/CREATININE RATIO 13.33; CALCIUM SERUM 8.4 mg/dL (8.4-10.2); CREATININE SERUM 0.6 mg/dL (0.6-1.4); GLOM FILT RATE Estimated 101.9 mL/min (>60); POTASSIUM 4.2 mmol/L (3.5-5.1); PROTEIN TOTAL SERUM 5.5 g/dL (6.0-8.3)
[2017-06-02] MEDS ORDERED: ALBUTEROL17 GM INH (10:08)
[2017-06-02] MEDS ORDERED: ASPIRIN81 MG PO (10:09)
== END 2017-06-02 13:31 | disposition home health service (06) | DRG 64 ==
LOC: CED 08:06 → CEDOF 09:40 → C3A PCU 09:40 → CED 09:40 → CEDOF 10:41 → CED 10:41 → CEDOF 18:40 → C3A PCU 18:40
PROVIDERS: Emergency Medicine; Family Medicine; Internal Medicine; Psychiatry & Neurology Neurology
PROC: B24BZZZ Ultrasonography of Heart with Aorta (ICD-10-PCS; 2017-05-29)
PROC: B325YZZ Computerized Tomography (CT Scan) of Bilateral Common Carotid Arteries using Other Contrast (ICD-10-PCS; 2017-05-29)
PROC: B32GYZZ Computerized Tomography (CT Scan) of Bilateral Vertebral Arteries using Other Contrast (ICD-10-PCS; 2017-05-29)
PROC: B32RYZZ Computerized Tomography (CT Scan) of Intracranial Arteries using Other Contrast (ICD-10-PCS; 2017-05-29)
PROC: B328YZZ Computerized Tomography (CT Scan) of Bilateral Internal Carotid Arteries using Other Contrast (ICD-10-PCS; 2017-05-29)
PROC: 0DH63UZ Insertion of Feeding Device into Stomach, Percutaneous Approach (ICD-10-PCS; 2017-05-31)
PROC: 0DJ08ZZ Inspection of Upper Intestinal Tract, Via Natural or Artificial Opening Endoscopic (ICD-10-PCS; principal; 2017-05-31 10:37)
DX: I63.8 Other cerebral infarction (principal); E43 Unspecified severe protein-calorie malnutrition; Z68.1 Body mass index [BMI] 19.9 or less, adult; R27.0 Ataxia, unspecified; R47.1 Dysarthria and anarthria; R13.12 Dysphagia, oropharyngeal phase; R29.6 Repeated falls; F10.20 Alcohol dependence, uncomplicated; Z87.891 Personal history of nicotine dependence; J44.9 Chronic obstructive pulmonary disease, unspecified; Z71.41 Alcohol abuse counseling and surveillance of alcoholic; K21.9 Gastro-esophageal reflux disease without esophagitis; Z96.641 Presence of right artificial hip joint; R62.7 Adult failure to thrive
CPT/HCPCS: 36415; 70450; 70496; 70498; 70551; 71010; 71250; 74020; 74230; 80048; 80053; 80061; 80076; 82553; 82607; 82746; 82947; 83036; 83735; 84443; 84484; 85025; 85027; 85610; 85730; 86140; 92507; 92523-GN; 92526; 92610; 92611; 93005; 93306; 94640; 94760; 96372; 97161; 97165; 99285; G8978-GP; G8979-GP; G8980-GP; G8987-GO; G8988-GO; G8996-GN; G8997-GN; J0690; J1650; J2270; J3411; J3420; J3475; Q9967